=== PATIENT | female | born 1995 | race African-American/Black ===

== ENCOUNTER 2016-04-24 20:50 | Outpatient (CLI) | payer OTHER ==
[~2016-04-24] VITALS: Ht 165.1 cm; Wt 81.0 kg
[~2016-04-24 20:50] MED LIST: CIPRO500 MG PO; FLEXERIL10 MG PO; KEFLEX500 MG PO; MIRALAX17 GM PO; NAPROSYN500 MG PO; ULTRAM50 MG PO
[2016-04-24 21:00] VITALS: BP 117/64
== END 2016-04-24 21:45 | disposition home or self-care (01) ==
LOC: LDRP-OP 20:50 → 2WEST 20:51
DX: Z04.3 Encounter for examination and observation following other accident (principal); O99.89 Other specified diseases and conditions complicating pregnancy, childbirth and the puerperium; Z3A.22 22 weeks gestation of pregnancy
CPT/HCPCS: G0378

== ENCOUNTER 2016-04-24 21:59 | Emergency (ER) | payer OTHER ==
[~2016-04-24] VITALS: Ht 165.1 cm; Wt 81.3 kg
[2016-04-25 00:27] VITALS: BP 99/80
== END 2016-04-25 00:28 | disposition home or self-care (01) ==
LOC: EME 21:59 → EXP 21:59
DX: S93.401A Sprain of unspecified ligament of right ankle, initial encounter (principal); W18.09XA Striking against other object with subsequent fall, initial encounter
CPT/HCPCS: 73610; 99281; 99284

== ENCOUNTER 2016-08-03 17:14 | Inpatient (IN) | payer OTHER ==
[~2016-08-03] VITALS: Ht 165.1 cm; Wt 80.0 kg
[2016-08-03] VITALS (10 sets, daily range): BP systolic 107–128; BP diastolic 61–87
[2016-08-03] MEDS ORDERED: IBUPROFEN800 MG PO (19:38)
[2016-08-04 07:35] VITALS: BP 111/67
[2016-08-04 07:39] LABS: BASOPHIL COUNT 0.1 K/uL (0-0.1); EOSINOPHIL (%) 0.2 % (0-5); HEMATOCRIT 27.8 % (36.0-46.0); IMMATURE GRANULOCYTE (%) 0.5 % (0.0-0.7); IMMATURE GRANULOCYTE COUNT 0.1 K/uL; INSTRUMENT ABS NEUTROPHIL CT 11.7 K/uL; LYMPHOCYTE COUNT 3.4 K/uL (1.0-2.8); MCH 24.2 PG (29.0-34.0); MCHC 31.7 G/DL (30.0-36.0); MCV 76.4 FL (83-99); MEAN PLAT.VOLUME 9.1 uM^3 (9.5-12.4); MONOCYTE (%) 7.6 % (3-12); MONOCYTE COUNT 1.3 K/uL (0-0.8); NEUTROPHIL (%) 70.7 % (45-76); NEUTROPHIL COUNT 11.7 K/uL (1.8-6.4); PLATELET COUNT 331 K/uL (156-360); RBC DIS.WIDTH-CV 15.6 % (11.8-14.6); RBC DIS.WIDTH-SD 43.1 % (39-53); RED BLOOD COUNT 3.64 M/uL (3.80-5.20); WHITE BLOOD COUNT 16.6 K/uL (4.1-10.2)
[2016-08-04 15:39] VITALS: BP 114/56
[2016-08-04 22:34] VITALS: BP 116/69
[2016-08-05 07:45] VITALS: BP 118/71
== END 2016-08-05 12:50 | disposition home or self-care (01) | DRG 775 ==
LOC: LDRP-OP 17:14 → 2WEST 17:15 → LDRP-OP 09-23 22:11
PROVIDERS: Nurse Practitioner
PROC: 10E0XZZ Delivery of Products of Conception, External Approach (ICD-10-PCS; principal; 2016-08-03)
DX: O99.02 Anemia complicating childbirth (principal); Z3A.37 37 weeks gestation of pregnancy; Z37.0 Single live birth; D50.9 Iron deficiency anemia, unspecified
CPT/HCPCS: 85025; J0595; J1050; Q0169

== ENCOUNTER 2017-02-02 17:20 | Emergency (ER) | payer OTHER ==
[~2017-02-02] VITALS: Ht 165.1 cm; Wt 83.1 kg
[~2017-02-02 17:20] MED LIST changes: +IBUPROFEN800 MG PO
[2017-02-02 19:01] LABS: HEMATOCRIT 37.5 % (36.0-46.0); MCH 25.6 PG (29.0-34.0); MCHC 32.5 G/DL (30.0-36.0); MCV 78.8 FL (83-99); MEAN PLAT.VOLUME 9.1 uM^3 (9.5-12.4); PLATELET COUNT 417 K/uL (156-360); RBC DIS.WIDTH-SD 40.1 % (39-53); RED BLOOD COUNT 4.76 M/uL (3.80-5.20)
[2017-02-02 19:09] LABS: CHLORIDE 108 mEq/L (99-109); POTASSIUM 3.5 mEq/L (3.7-5.4); SODIUM 141 mEq/L (136-147)
[2017-02-02 19:10] LABS: GLUCOSE 66 mg/dL (70-99)
[2017-02-02 19:12] LABS: ANION GAP 11 MEQ/L (2-14)
[2017-02-02 19:14] LABS: GFR ESTIMATE (CALCULATED) > 59 mL/min/
[2017-02-02 19:15] LABS: UREA NITROGEN (BUN) 20 mg/dL (9-23)
[2017-02-02 19:21] LABS: TROP-I INTERPRETATION NEGATIVE; TROPONIN-I < 0.01 ng/mL (0.0-0.30)
[2017-02-02 19:56] VITALS: BP 100/64
== END 2017-02-02 19:56 | disposition home or self-care (01) ==
LOC: EME 17:20
PROVIDERS: Physician Assistant Medical
DX: R07.9 Chest pain, unspecified (principal); Z86.73 Personal history of transient ischemic attack (TIA), and cerebral infarction without residual deficits
CPT/HCPCS: 71020; 80048; 84484; 85027; 93005; 99281; 99284; J1885

== ENCOUNTER 2017-10-28 09:01 | Emergency (ER) | payer OTHER ==
[~2017-10-28] VITALS: Ht 165.1 cm; Wt 84.5 kg
[2017-10-28] MEDS ORDERED: MOTRIN800 MG PO (09:42)
[2017-10-28] MEDS ORDERED: FLEXERIL10 MG PO (09:42)
[2017-10-28 10:22] VITALS: BP 112/71
== END 2017-10-28 10:25 | disposition home or self-care (01) ==
LOC: EME 09:01
DX: M94.0 Chondrocostal junction syndrome [Tietze] (principal); Z86.73 Personal history of transient ischemic attack (TIA), and cerebral infarction without residual deficits
CPT/HCPCS: 71046; 93005; 99281; 99284